=== PATIENT | female | born 1945 | race Caucasian/White ===

== ENCOUNTER → 2024-12-25 | Day surgery (SDC) | payer OTHER ==
[~2024-12-25] MED LIST: PROPOFOL 200 MG/20 ML VIAL ONE
[2024-12-25 10:01] LABS: #Basophils 0.07 10x3/uL (0.0-0.2); #Eosinophils 0.20 10x3/uL (0.0-0.5); #Monocytes 0.58 10x3/uL (0.0-1.1); #Neutrophils 4.66 10x3/uL (1.5-8.4); %Basophils 1.0 % (0.0-2.0); %Eosinophils 2.7 % (0.0-6.0); %Lymphocytes 24.0 % (18.0-47.0); %Monocytes 8.0 % (0.0-10.0); %Neutrophils 64.0 % (40.0-75.0); Hematocrit 42.7 % (34.9-44.5); Hemoglobin 14.1 g/dL (12.0-15.5); Mean Corpuscular Hemoglobin 27.5 pg (27.0-33.0); Mean Corpuscular Volume 83.4 fL (81.6-98.3); Platelet Count 252 10x3/uL (150-450); Red Blood Cell (RBC) Count 5.12 10x6/uL (3.90-5.03); White Blood Cell (WBC) Count 7.28 10x3/uL (3.5-10.5)
[2024-12-25 10:09] VITALS: BP 167/72; TEMP 97.4
[2024-12-25 10:18] LABS: INR-International Normal Ratio 1.0; Prothrombin Time 11.4 sec (9.5-12.1)
[2024-12-25 10:21] LABS: ALT (SGPT) 16 U/L (Less than 34); AST (SGOT) 21 U/L (11-34); Albumin 4.2 g/dL (3.1-4.5); Alkaline Phosphatase 64 U/L (40-110); Anion Gap 15 mmol/L (10-20); BUN (Urea Nitrogen) 12 mg/dL (9.8-20.1); Bilirubin, Total 1.0 mg/dL (0.3-1.2); Calc. Creatinine Clearance 76 mL/min (70-130); Calcium 9.3 mg/dL (7.8-10.44); Carbon Dioxide 25 mmol/L (23-31); Chloride 104 mmol/L (98-107); Globulin 3.0 g/dL (2.4-3.5); Glucose 98 mg/dL (83-110); Magnesium 2.2 mg/dL (1.6-2.6); Potassium 3.8 mmol/L (3.5-5.1); Sodium 140 mmol/L (136-145)
== END ==
LOC: CSHSDC 09:04
PROVIDERS: ATTEND Specialist
PROC: 5A2204Z Restoration of Cardiac Rhythm, Single (ICD-10-PCS; principal; 2024-12-25)
DX: I48.19 Other persistent atrial fibrillation (principal); I10 Essential (primary) hypertension; E78.5 Hyperlipidemia, unspecified; Z79.899 Other long term (current) drug therapy
CPT/HCPCS: 80053; 83735; 85025; 85610; 92960; 93005 ×2; J2704; 93010